=== PATIENT | female | born 1945 | race Caucasian/White ===

== ENCOUNTER → 2018-08-26 | Outpatient (CLI) | payer MEDICARE, BC ==
[2018-08-26 12:32] LABS: CHLORIDE 107 mmol/L (98-107)
[2018-08-26 12:46] LABS: ALANINE AMINOTRANSFERASE 30 U/L (12-78); ALKALINE PHOSPHATASE 75 U/L (45-117); ANION GAP 11 mmol/L (5-15); BILIRUBIN,TOTAL 0.8 mg/dL (0.2-1.0); CALCIUM 8.9 mg/dL (8.5-10.1); CHOL/HDL RATIO 2.8; CHOLESTEROL, TOTAL 275 mg/dL (140-239); CREATININE 0.64 mg/dL (0.55-1.02); HDL CHOL % 36 % (28-40); HDL CHOLESTEROL (DIRECT) 100 mg/dL (40-60); LDL CHOLESTEROL,CALCULATED 158 mg/dL (54-169); LDL/HDL RATIO 1.6 (0.5-3.0); TOTAL PROTEIN 7.3 g/dL (6.4-8.2); TRIGLYCERIDES 86 mg/dL (50-200); VLDL CHOLESTEROL 17 mg/dL (0-25)
== END | disposition home or self-care (01) ==
LOC: CFH 09:42
PROVIDERS: ATTEND Internal Medicine Cardiovascular Disease
DX: I10 Essential (primary) hypertension (principal)
CPT/HCPCS: 36415; 71046; 80053; 80061; 83880

== ENCOUNTER 2020-04-15 18:55 | Inpatient (IN) | payer MEDICARE, BC ==
[~2020-04-15] VITALS: Ht 165.1 cm; Wt 130.1 kg
[2020-04-15 23:17] VITALS: BP 138/93
[2020-04-16] MEDS ORDERED: MELATONIN 3 MG TABLET PO PRN (00:30)
[2020-04-16] MEDS ORDERED: MELA1TAB22 PO (00:45)
[2020-04-16] MEDS ORDERED: CELE200C PO (00:45)
[2020-04-16] MEDS ORDERED: LOSA100T14 PO (00:45)
[2020-04-16] MEDS ORDERED: CETI10TA18 PO (00:45)
[2020-04-16] MEDS ORDERED: DILT240C80 PO (00:45)
[2020-04-16] MEDS ORDERED: HYDROCHLOROTH12.5 MG PO (00:45)
[2020-04-16] MEDS ORDERED: OXYB5TAB10 PO (00:45)
[2020-04-16] MEDS ORDERED: LEVO88TA4 PO (00:45)
[2020-04-16] MEDS ORDERED: MELATONIN 5 MG TABLET PO PRN (01:00)
[2020-04-16] MEDS ORDERED: ACETAMINOPHEN 325 MG TABLET PO PRN (01:00)
[2020-04-16] MEDS ORDERED: LIDODERM 5% PATCH TD PRN (01:00)
[2020-04-16] MEDS ORDERED: ENOXAPARIN 150 MG/ML SQ SCH (01:00)
[2020-04-16] MEDS ORDERED: DOCUSATE 100 MG CAPSULE PO PRN (01:00)
[2020-04-16 01:46] VITALS: BP 119/81
[2020-04-16 05:05] LABS: BASOPHILS % (AUTO) 1 % (0-1); EOSINOPHILS % (AUTO) 5 % (1-7); LYMPHOCYTES % (AUTO) 25 % (22-44); MEAN CORPUSCULAR HGB CONC 34.2 g/dL (32.4-35.8); MEAN PLATELET VOLUME 8.9 fL (7.4-10.4); MONOCYTES % (AUTO) 10 % (2-9); NEUTROPHILS % (AUTO) 59 % (42-75); PLATELET COUNT 202 x10^3/uL (130-400); RED BLOOD COUNT 4.13 x10^6/uL (3.82-5.3); RED CELL DISTRIBUTION WIDTH 14.2 % (9.6-15.2)
[2020-04-16 05:08] LABS: MD NO
[2020-04-16 05:10] LABS: ALBUMIN 3.2 g/dL (3.4-5.0); ANION GAP 8 mmol/L (5-15); CALCIUM 8.3 mg/dL (8.5-10.1); CHLORIDE 110 mmol/L (98-107)
[2020-04-16 05:18] LABS: ALANINE AMINOTRANSFERASE 20 U/L (12-78); ALKALINE PHOSPHATASE 89 U/L (45-117); BILIRUBIN,TOTAL 0.6 mg/dL (0.2-1.0); CREATININE 0.56 mg/dL (0.55-1.02); TOTAL PROTEIN 6.2 g/dL (6.4-8.2)
[2020-04-16] MEDS: METOPROLOL TARTRATE 25 MG TAB PO SCH ×2 (05:37→17:21)
[2020-04-16] MEDS ORDERED: LEVOTHYROXINE 88 MCG TABLET PO SCH ×2 (06:00→09:00)
[2020-04-16] MEDS ORDERED: FUROSEMIDE 20 MG/2 ML IV ONE (08:30)
[2020-04-16] MEDS ORDERED: POTASSIUM CHLORIDE 20 MEQ TAB.ER.PRT PO ONE (08:30)
[2020-04-16 08:45] VITALS: BP 135/90
[2020-04-16] MEDS ORDERED: LOSARTAN 100 MG TAB PO SCH (09:00)
[2020-04-16] MEDS ORDERED: DILTIAZEM 240 MG CAP.ER.24H PO SCH (09:00)
[2020-04-16] MEDS: CETIRIZINE 10 MG TABLET PO SCH (09:04)
[2020-04-16] MEDS: HYDROCHLOROTHIAZIDE 12.5 MG CAPSULE PO SCH (09:04)
[2020-04-16] MEDS: AMIODARONE 200 MG TABLET PO SCH ×2 (09:04→21:03)
[2020-04-16] MEDS: APIXABAN 5 MG TABLET PO SCH ×2 (09:04→21:03)
[2020-04-16] MEDS: OXYBUTYNIN CHLORIDE 5 MG TABLET PO SCH (09:05)
[2020-04-16] MEDS ORDERED: AMIODARONE 200 MG TABLET PO SCH (12:00)
[2020-04-16 13:14] VITALS: BP 120/83
[2020-04-16 20:00] VITALS: BP 151/82
[2020-04-17 02:00] VITALS: BP 119/72
[2020-04-17 05:10] LABS: CHLORIDE 108 mmol/L (98-107)
[2020-04-17 05:26] LABS: ANION GAP 8 mmol/L (5-15); CALCIUM 8.3 mg/dL (8.5-10.1); CHOL/HDL RATIO 3.6; CHOLESTEROL, TOTAL 190 mg/dL (140-239); CREATININE 0.65 mg/dL (0.55-1.02); HDL CHOL % 28 % (28-40); HDL CHOLESTEROL (DIRECT) 53 mg/dL (40-60); LDL CHOLESTEROL,CALCULATED 112 mg/dL (54-169); LDL/HDL RATIO 2.1 (0.5-3.0); TRIGLYCERIDES 126 mg/dL (50-200); VLDL CHOLESTEROL 25 mg/dL (0-25)
[2020-04-17 05:47] LABS: FREE T4 (FREE THYROXINE) 1.21 ng/dL (0.76-1.46)
[2020-04-17] MEDS: METOPROLOL TARTRATE 25 MG TAB PO SCH (05:55)
[2020-04-17 07:53] VITALS: BP 119/82
[2020-04-17] MEDS: APIXABAN 5 MG TABLET PO SCH ×2 (08:34→20:50)
[2020-04-17] MEDS: HYDROCHLOROTHIAZIDE 12.5 MG CAPSULE PO SCH (08:34)
[2020-04-17] MEDS: OXYBUTYNIN CHLORIDE 5 MG TABLET PO SCH (08:34)
[2020-04-17] MEDS: AMIODARONE 200 MG TABLET PO SCH ×2 (08:34→20:51)
[2020-04-17] MEDS: CETIRIZINE 10 MG TABLET PO SCH (08:34)
[2020-04-17] MEDS ORDERED: PROPOFOL 10 MG/ML, 20ML ONE (11:55)
[2020-04-17 13:40] VITALS: BP 135/86
[2020-04-17 17:46] VITALS: BP 124/85
[2020-04-17] MEDS ORDERED: METOPROLOL SUCCINATE 50 MG TAB.ER.24H PO SCH (18:00)
[2020-04-17 20:00] VITALS: BP 128/84
[2020-04-18 03:43] VITALS: BP 149/84
[2020-04-18 05:06] LABS: BASOPHILS % (AUTO) 1 % (0-1); EOSINOPHILS % (AUTO) 6 % (1-7); LYMPHOCYTES % (AUTO) 23 % (22-44); MEAN CORPUSCULAR HEMOGLOBIN 32.2 pg (27.0-34.8); MEAN PLATELET VOLUME 8.2 fL (7.4-10.4); MONOCYTES % (AUTO) 11 % (2-9); NEUTROPHILS % (AUTO) 59 % (42-75); PLATELET COUNT 196 x10^3/uL (130-400); RED BLOOD COUNT 4.05 x10^6/uL (3.82-5.3)
[2020-04-18 05:16] LABS: ANION GAP 7 mmol/L (5-15); CALCIUM 8.5 mg/dL (8.5-10.1); CHLORIDE 107 mmol/L (98-107); CREATININE 0.85 mg/dL (0.55-1.02)
[2020-04-18 05:17] LABS: MD NO
[2020-04-18 07:40] VITALS: BP 135/72
[2020-04-18] MEDS: CETIRIZINE 10 MG TABLET PO SCH (08:06)
[2020-04-18] MEDS: OXYBUTYNIN CHLORIDE 5 MG TABLET PO SCH (08:06)
[2020-04-18] MEDS: AMIODARONE 200 MG TABLET PO SCH (08:07)
[2020-04-18] MEDS: APIXABAN 5 MG TABLET PO SCH (08:07)
[2020-04-18] MEDS ORDERED: SPIRONOLACTONE 25 MG TABLET PO SCH (09:00)
[2020-04-18] MEDS ORDERED: LISINOPRIL 10 MG TABLET PO SCH (09:00)
[2020-04-18] MEDS ORDERED: LOSARTAN 50MG TABLET PO SCH (09:00)
[2020-04-18] MEDS ORDERED: LISINOPRIL 20 MG TABLET PO SCH (09:00)
[2020-04-18] MEDS ORDERED: SPIR25TA PO (09:47)
[2020-04-18] MEDS ORDERED: APIX5TAB PO (09:47)
[2020-04-18] MEDS ORDERED: METO-93 PO (09:47)
[2020-04-18] MEDS ORDERED: AMIO200T42 PO (09:47)
== END 2020-04-18 10:56 | disposition home health service (06) | DRG 308 ==
LOC: 5SO 21:27 → DCLOUNGE 04-18 10:47
PROVIDERS: ADMIT Hospitalist; ATTEND Hospitalist
PROC: 5A09357 Assistance with Respiratory Ventilation, Less than 24 Consecutive Hours, Continuous Positive Airway Pressure (ICD-10-PCS; 2020-04-16)
PROC: 5A2204Z Restoration of Cardiac Rhythm, Single (ICD-10-PCS; principal; 2020-04-17 12:00)
DX: I48.92 Unspecified atrial flutter (principal); I50.41 Acute combined systolic (congestive) and diastolic (congestive) heart failure; E66.2 Morbid (severe) obesity with alveolar hypoventilation; D68.69 Other thrombophilia; Z68.42 Body mass index [BMI] 45.0-49.9, adult; I47.2 Ventricular tachycardia; E03.9 Hypothyroidism, unspecified; E78.5 Hyperlipidemia, unspecified; F17.210 Nicotine dependence, cigarettes, uncomplicated; I11.0 Hypertensive heart disease with heart failure; I27.29 Other secondary pulmonary hypertension; I27.81 Cor pulmonale (chronic); I34.0 Nonrheumatic mitral (valve) insufficiency; I45.89 Other specified conduction disorders; Z96.653 Presence of artificial knee joint, bilateral; I48.19 Other persistent atrial fibrillation; Z20.822 Contact with and (suspected) exposure to COVID-19; M19.90 Unspecified osteoarthritis, unspecified site; Z80.9 Family history of malignant neoplasm, unspecified; Z82.49 Family history of ischemic heart disease and other diseases of the circulatory system
CPT/HCPCS: 36415; 80048; 80053; 80061; 83735; 83880; 84100; 84439; 84443; 85025; 87635; 93005; 93306; 93312; 93325; G0378; J1650; J2704; J1940

== ENCOUNTER → 2020-05-12 | Outpatient (CLI) | payer MEDICARE, BC ==
[~2020-05-12] MED LIST: AMIO200T42 PO; APIX5TAB PO; CELE200C PO; CETI10TA18 PO; DILT240C80 PO; HYDROCHLOROTH12.5 MG PO; LEVO88TA4 PO; LOSA100T14 PO; MELA1TAB22 PO; METO-93 PO; OXYB5TAB10 PO; SPIR25TA PO
== END | disposition home or self-care (01) ==
LOC: CVU 09:51
PROVIDERS: ATTEND Internal Medicine Cardiovascular Disease
DX: I08.1 Rheumatic disorders of both mitral and tricuspid valves (principal); I42.9 Cardiomyopathy, unspecified; I11.9 Hypertensive heart disease without heart failure; Z87.891 Personal history of nicotine dependence
CPT/HCPCS: 93306